=== PATIENT | female | born 1950 | race Caucasian/White ===

== ENCOUNTER 2016-11-06 22:34 | Emergency (ER) | payer OTHER ==
[~2016-11-06 22:34] MED LIST: ASPIR 8181 MG PO; AUGMENTIN TAB875 MG PO; BENTYL20 MG PO; COLACE 100MG C100 MG PO; COLCHICINE 0.60.6 MG PO; COREG 25MG TAB25 MG PO; CYMBALTA20 MG PO; CYMBALTA60 MG PO; FLAGYL500 MG PO; FLONASE 0.05% N16 GM; GLUCOPHAGE XR500 MG PO; IBUPROFEN800 MG PO; LEVAQUIN500 MG PO; MOBIC7.5 MG PO; NEURONTIN 300300 MG PO; PILOCARPINE HCL5 MG PO; PROTONIX40 MG PO; TRIAMTERENE-HC1 EAC1 PO; VITAMIN B-121000 MC3 INJ; ZOFRAN8 MG PO
== END 2016-11-07 00:30 | disposition left against medical advice (07) ==
LOC: ER1 22:34
DX: Z53.21 Procedure and treatment not carried out due to patient leaving prior to being seen by health care provider (principal)